=== PATIENT | female | born 1980 | race Caucasian/White ===

== ENCOUNTER 2017-06-03 21:22 | Emergency (ER) | payer OTHER ==
[~2017-06-03 21:22] MED LIST: 1-ME1LIQ PO; BENA25TA8 PO; DIPH50TA PO; HYDR12.56 PO; PRED20 PO; RANI150 PO
[2017-06-03 21:40] VITALS: BP 219/123; PULSE 112; RESP 20; TEMP 98.4; O2SAT 100
[2017-06-04] MEDS ORDERED: MELA1TAB18 PO (01:05)
[2017-06-04] MEDS ORDERED: AMLO10TA2 PO (01:05)
--- NOTE | 2017-06-04 01:08 | PD ---
HPI Chief Complaint: Cold / Flu Symptoms Time Seen by Provider: 00:50 Travel History International Travel<30 days: No Contact w/Intl Traveler<30days: No Traveled to known affect area: No History of Present Illness HPI Patient reports sore throat coughing hoarse voice for the last 2 days. She is worried everyone in her office has strep throat. She is taking Advil for the pain because she had a headache as well. It did not relieve her sore throat. She has not taken any antibiotics she has not seen another doctor. She has no history of bronchitis or asthma or reactive airway. No known drug allergies. Her 's bedside does not have the same symptoms she has sick contacts at work so pain is localized to the throat and there is a mild cough and mild chills hot and cold feeling she reports did not measure her feeling PFSH Past Medical History Diminished Hearing: No Hypertension: Yes Kidney Stones: Yes Musculoskeletal: Yes (SCOLIOSIS) Tetanus Vaccination: Never Vaccinated Influenza Vaccination: No ?: Not LMP: 05/29/17 : 1 Miscarriage: 1 Past Surgical History Tonsillectomy: Yes Other Surgery: Yes (uterine ablation) Social History Alcohol Use: No Tobacco Use: No Substance Use: No Allergies-Medications (Allergen,Severity, Reaction): Coded Allergies: No Known Allergies (Verified Allergy, Unknown, 06/04/17) Reported Meds & Prescriptions Reported Meds & Active Scripts Active Ibuprofen 600 Mg Tab 600 Mg PO Q6H PRN Amoxicillin 500 Mg Cap 500 Mg PO TID Guaifenesin AC Liq (Guaifenesin-Codeine Liq) 100-10 Mg/5 Ml Syrp 10 Ml PO Q6H PRN Reported Melatonin 10 Mg-1 Mg Tab 10 Mg PO HS PRN Amlodipine (Amlodipine Besylate) 10 Mg Tab 10 Mg PO DAILY Physical Exam Narrative GENERAL: non toxic SKIN: Warm and dry. HEAD: Atraumatic. Normocephalic. EYES: Pupils equal and round. No scleral icterus. No injection or drainage. ENT: No nasal bleeding or discharge. Mucous membranes pink and moist.erythema post pharynx NECK: Trachea midline. No JVD. slight lymphadenopathy CARDIOVASCULAR: Regular rate and rhythm. RESPIRATORY: No accessory muscle use. Clear to auscultation. Breath sounds equal bilaterally. GASTROINTESTINAL: Abdomen soft, non-tender, nondistended. Hepatic and splenic margins not palpable. MUSCULOSKELETAL: Extremities without clubbing, cyanosis, or edema. No obvious deformities. NEUROLOGICAL: Awake and alert. No obvious cranial nerve deficits. Motor grossly within normal limits. Five out of 5 muscle strength in the arms and legs. Normal speech. PSYCHIATRIC: Appropriate mood and affect; insight and judgment normal. Data Data Last Documented VS Vital Signs Date Time Temp Pulse Resp B/P (MAP) Pulse Ox O2 Delivery O2 Flow Rate FiO2 06/04/17 02:08 78 16 133/76 (95) 97 06/04/17 01:11 Room Air 06/03/17 21:40 98.4 Orders Orders Group A Rapid Strep Screen (06/03/17 21:45) Strep Culture (Group A) (06/03/17 21:30) Influenzae A/B Antigen (06/04/17 00:50) Guaifen-Cod 200-20 Mg/10ml Liq (Robituss (06/04/17 01:30) Ibuprofen (Motrin) (06/04/17 01:30) Bmp-Duqq-Wg-Mg-Simeth Liq (Magic Mouthwa (06/04/17 01:30) Ed Discharge Order (06/04/17 01:36) MDM Medical Decision Making Medical Screen Exam Complete: Yes Emergency Medical Condition: Yes Differential Diagnosis Strep pharyngitis versus influenza versus upper respiratory infection and NOS versus allergic rhinitis Narrative Course Strep throat culture sent swab rapid is negative we'll give patient amoxicillin prescription as well as Robitussin-AC for cough and have her follow-up as an outpatient Diagnosis Primary Impression: Upper respiratory infection Qualified Codes: J06.9 - Acute upper respiratory infection, unspecified Patient Instructions: General Instructions, Upper Respiratory Infection (ED) Scripts Ibuprofen (Ibuprofen) 600 Mg Tab 600 MG PO Q6H Y for Pain/Inflammation, #40 TAB 0 Refills Prov: Eduardo Wagoner MD 06/04/17 Amoxicillin (Amoxicillin) 500 Mg Cap 500 MG PO TID for Infection, #28 CAP 0 Refills Prov: Eduardo Wagoner MD 06/04/17 Guaifenesin-Codeine Liq (Guaifenesin AC Liq) 100-10 Mg/5 Ml Syrp 10 ML PO Q6H Y for COUGH, #1 BOTTLE 0 Refills Prov: Eduardo Wagoner MD 06/04/17 Disposition: 01 DISCHARGE HOME Condition: Good Eduardo Wagoner MD Jun 04, 2017 01:08
[2017-06-04] MEDS ORDERED: GUAISYP4 PO (01:13)
[2017-06-04] MEDS ORDERED: IBUP-232 PO (01:13)
[2017-06-04] MEDS ORDERED: AMOX500C PO (01:13)
[2017-06-04] MEDS ORDERED: DIPHENHY/LIDO/MAG/ALUM MOUTHWASH (Adult/Peds) 60 ML BTL SWISH-SWAL ONE (01:30)
[2017-06-04] MEDS ORDERED: guaiFENesin/CODEINE SYRUP 200 MG/20 MG/10 ML CUP PO ONE (01:30)
[2017-06-04] MEDS ORDERED: IBUPROFEN 600 MG TAB PO ONE (01:30)
[2017-06-04 02:08] VITALS: BP 133/76
== END 2017-06-04 02:09 | disposition home or self-care (01) ==
LOC: PHED 21:22
DX: J06.9 Acute upper respiratory infection, unspecified (principal); I10 Essential (primary) hypertension
CPT/HCPCS: 87081; 87804; 87880; 99283